=== PATIENT | female | born 1965 | race Caucasian/White ===

== ENCOUNTER 2022-02-15 13:38 | Outpatient (CLI) | payer BC, OTHER ==
[~2022-02-15 13:38] MED LIST: Magnevist 469MG/ML 20 ML VIAL ONE
== END 2022-02-15 13:39 | disposition home or self-care (01) ==
LOC: CSHMRI 13:38
PROVIDERS: ATTEND Physician Assistant
DX: H90.3 Sensorineural hearing loss, bilateral (principal)
CPT/HCPCS: 70553; A9579